=== PATIENT | male | born 1990 | race Caucasian/White ===

== ENCOUNTER → 2017-09-15 | Outpatient (CLI) | payer BC ==
--- NOTE | 2017-09-15 12:44 | DIAGNOSTIC IMAGING REPORT ---
L RIBS UNILATERAL WITH PA CHEST CLINICAL HISTORY: R07.89 pain COMPARISON STUDY: None FINDINGS: Nondisplaced transverse fracture posterior aspect left 11th rib. All remaining ribs are unremarkable. No evidence for pneumothorax. The lungs are clear. IMPRESSION: Nondisplaced cortical fracture left 11th rib. Negative chest. The above report was generated using voice recognition software. It may contain grammatical, syntax or spelling errors. Electronically signed by: Yvon Alonzo M.D. 09/15/2017 12:43 PM Dictated Date/Time: 09/15/2017 12:41 PM
== END | disposition home or self-care (01) ==
LOC: C.RADBC 12:18
PROVIDERS: ATTEND Family Medicine
DX: R07.89 Other chest pain (principal)